=== PATIENT | female | born 1970 | race Hispanic/Latino ===

== ENCOUNTER 2018-04-11 02:28 | Emergency (ER) | payer OTHER ==
[2018-04-11] MEDS ORDERED: ASPIRIN 81MG TAB.CHEW ONE (02:49)
[2018-04-11 03:16] LABS: CREATININE 0.8 mg/dL (0.5-1.5); POTASSIUM 3.8 mmol/L (3.5-5.1)
[2018-04-11 03:17] LABS: INR 0.95 (0.85-1.15); PARTIAL THROMBOPLASTIN TIME 28.2 SEC (26.3-35.5)
[2018-04-11 03:23] LABS: BASOPHILS % (AUTO) 0.4 % (0.0-5.0); HEMATOCRIT 39.1 % (36-48); LYMPHOCYTES % (AUTO) 28.7 % (21.0-51.0); MEAN CORPUSCULAR HEMOGLOBIN 32.3 pg (27.0-33.0); MEAN CORPUSCULAR HGB CONC 35.8 g/dL (32.0-36.0); MEAN CORPUSCULAR VOLUME 90.1 fL (79-99); MONOCYTES % (AUTO) 7.3 % (3.0-13.0); NEUTROPHILS % (AUTO) 61.6 % (40.0-77.0); NUCLEATED RED BLOOD CELLS 0.1 % (0.0-0.19); PLATELET COUNT (AUTO) 193 K/uL (130-400); RED BLOOD CELL COUNT(AUTO) 4.34 MIL/uL (4.00-5.50); RED CELL DISTRIBUTION WIDTH 12.9 % (11.0-15.5); WHITE BLOOD COUNT (AUTO) 7.8 K/uL (4.8-10.8)
[2018-04-11 03:30] LABS: ALBUMIN 3.3 g/dL (3.5-5.0); BILIRUBIN,TOTAL 0.4 mg/dL (0.2-1.0); CREATINE KINASE MB 0.7 ng/mL (0.5-3.6); TOTAL PROTEIN, SERUM 6.6 g/dL (6.0-8.3)
== END 2018-04-11 06:18 | disposition home or self-care (01) ==
LOC: EDH 02:28
DX: R07.89 Other chest pain (principal); E11.9 Type 2 diabetes mellitus without complications; I10 Essential (primary) hypertension; E78.5 Hyperlipidemia, unspecified; F32.9 Major depressive disorder, single episode, unspecified; Z98.890 Other specified postprocedural states; Z72.0 Tobacco use
CPT/HCPCS: 36415; 71045; 80053; 82550; 82553; 83874; 84484; 84703; 85025; 85610; 85730; 93005; 94761

== ENCOUNTER 2020-05-16 17:37 | Inpatient (IN) | payer SELFPAY ==
[~2020-05-16] VITALS: Ht 154.9 cm; Wt 46.5 kg
[2020-05-16] MEDS ORDERED: ONDANSETRON HCL 4 MG/2 ML VIAL ONE (18:12)
[2020-05-16] MEDS ORDERED: MORPHINE SULFATE 4 MG/1ML SYG ONE (18:12)
[2020-05-16 18:24] LABS: BASOPHILS % (AUTO) 0.2 % (0.0-5.0); EOSINOPHILS % (AUTO) 0.1 % (0.0-8.0); HEMATOCRIT 43.1 % (36-48); LYMPHOCYTES % (AUTO) 21.7 % (21.0-51.0); MEAN CORPUSCULAR HEMOGLOBIN 29.7 pg (27.0-33.0); MEAN CORPUSCULAR HGB CONC 34.3 g/dL (32.0-36.0); MEAN CORPUSCULAR VOLUME 86.5 fL (79-99); MONOCYTES % (AUTO) 5.4 % (3.0-13.0); NEUTROPHILS % (AUTO) 72.3 % (40.0-77.0); PLATELET COUNT (AUTO) 236 K/uL (130-400); RED BLOOD CELL COUNT(AUTO) 4.98 MIL/uL (4.00-5.50); RED CELL DISTRIBUTION WIDTH 13.9 % (11.0-15.5); WHITE BLOOD COUNT (AUTO) 8.7 K/uL (4.8-10.8)
[2020-05-16 18:41] LABS: CREATININE 0.9 mg/dL (0.5-1.5); POTASSIUM 3.7 mmol/L (3.5-5.1)
[2020-05-16 18:45] LABS: ALBUMIN 4.3 g/dL (3.5-5.0); BILIRUBIN,TOTAL 0.8 mg/dL (0.2-1.0)
[2020-05-16 18:47] LABS: APPEARANCE,URINE CLOUDY (CLEAR); BILIRUBIN,URINE SMALL (NEGATIVE); COLOR,URINE YELLOW (YELLOW); GLUCOSE, URINE (UA) NEGATIVE (NEGATIVE); KETONES,URINE 5 mg/dL (NEGATIVE); LEUKOCYTE ESTERASE ,URINE NEGATIVE (NEGATIVE); NITRATE,URINE NEGATIVE (NEGATIVE); OCCULT BLOOD,URINE TRACE-INTACT (NEGATIVE); PROTEIN,URINE TRACE mg/dL (NEGATIVE)
[2020-05-16 18:55] LABS: AMORPHOUS SEDIMENT,UR Moderate /LPF (None Seen); BACTERIA,URINE Few /HPF (None Seen); SQUAMOUS EPITHELIAL CELL,UR Few /HPF (0-2)
[2020-05-16] MEDS: SODIUM CHLORIDE 0.9% 1000ML 1,000 ML IV SCH ×2 (19:53→23:47)
[2020-05-16] MEDS ORDERED: HYDRALAZINE HCL 20 MG/ML VIAL IV PRN (20:00)
[2020-05-16] MEDS ORDERED: ACETAMINOPHEN 325 MG TAB PO PRN (20:00)
[2020-05-16] MEDS ORDERED: LACTULOSE 20 GM/30 ML UDCUP PO PRN (20:00)
[2020-05-16] MEDS: FAMOTIDINE/PF 20 MG/2 ML VIAL IV SCH (21:00)
[2020-05-16] MEDS ORDERED: MORPHINE SULFATE 2 MG/ML 1ML SYG ONE (21:49)
--- NOTE | 2020-05-16 23:15 | NUR ---
ADMIT NOTE ADMIT TO ROOM 324 VIA STRETCHER FROM ER. PATIENT AWAKE, ALERT, OX3, NO SOB, C/.O PAIN, SEE PAIN ASSESSMENT AND TREATMENT, IVF INFUSING WELL TO LEFT AC 20, REINFORCE NPO STATUS, TEACH PATIENT PLAN OF CARE AND EXPECTED OUTCOME, PATIENT VERBALIZES UNDERSTANDING VIA TEACH BACK
[2020-05-16 23:22] VITALS: BP 180/79
[2020-05-16] MEDS: ONDANSETRON HCL 4 MG/2 ML VIAL IV PRN (23:47)
[2020-05-16] MEDS: MORPHINE SULFATE 2 MG/ML 1ML SYG IV PRN (23:48)
[2020-05-16] MEDS: INSULIN HUMULIN R 100 UNIT/ML 3ML SQ SCH (23:48)
[2020-05-17 03:33] VITALS: BP 125/63
[2020-05-17] MEDS: MORPHINE SULFATE 2 MG/ML 1ML SYG IV PRN ×4 (03:45→20:15)
[2020-05-17 04:32] LABS: BASOPHILS % (AUTO) 0.3 % (0.0-5.0); EOSINOPHILS % (AUTO) 1.2 % (0.0-8.0); HEMATOCRIT 38.8 % (36-48); MEAN CORPUSCULAR HEMOGLOBIN 29.5 pg (27.0-33.0); MEAN CORPUSCULAR HGB CONC 33.8 g/dL (32.0-36.0); MEAN CORPUSCULAR VOLUME 87.4 fL (79-99); MONOCYTES % (AUTO) 6.7 % (3.0-13.0); NEUTROPHILS % (AUTO) 57.5 % (40.0-77.0); PLATELET COUNT (AUTO) 195 K/uL (130-400); RED BLOOD CELL COUNT(AUTO) 4.44 MIL/uL (4.00-5.50); RED CELL DISTRIBUTION WIDTH 13.7 % (11.0-15.5); WHITE BLOOD COUNT (AUTO) 6.9 K/uL (4.8-10.8)
[2020-05-17 04:40] LABS: CREATININE 0.9 mg/dL (0.5-1.5); POTASSIUM 3.8 mmol/L (3.5-5.1)
[2020-05-17] MEDS: INSULIN HUMULIN R 100 UNIT/ML 3ML SQ SCH ×3 (05:32→21:43)
[2020-05-17 07:30] VITALS: BP 125/84
[2020-05-17] MEDS: FAMOTIDINE/PF 20 MG/2 ML VIAL IV SCH ×2 (08:50→20:14)
[2020-05-17] MEDS: ONDANSETRON HCL 4 MG/2 ML VIAL IV PRN ×2 (08:54→20:14)
[2020-05-17] MEDS: ENOXAPARIN SODIUM 40 MG/0.4 ML SYRINGE SQ SCH (08:55)
[2020-05-17 11:00] VITALS: BP 142/70
--- NOTE | 2020-05-17 11:00 | NUR ---
NOTFIED DR SHIN OF CONSULT AND SCAN REPORT. LET HER KNOW ALSO PER PATIENT PASSING GAS . PER MD WILL SEE PATIENT TOMORROW .
--- NOTE | 2020-05-17 12:09 | NUR ---
RD NOTIFICATION Pt admitted with Ileus, Bowel Obstruction. NGT placed for suction. Pt with constipation and nausea x3days. Pending Surgical Evaluation. Recommend continue POC Recommend Altered means nutrition if NPO >3-5 days Recommend advance diet as tolerated to GI Soft/[place] as medically feasible. RD to continue to monitor. Please notify as additional nutrition concerns arise. Thank you. Addendum: 05/17/20 at [address] RD Amended: Links added.
--- NOTE | 2020-05-17 13:02 | NUR ---
DIGNA PLAN VISITED WITH PATIENT. PATIENT DOWN FOR [facility] WILL CONTINUE TO FOLLOW AND COMPLETE IA. Addendum: 05/17/20 at 1303 by KAYLA SKAGGS RN CM Amended: Links added.
[2020-05-17 16:00] VITALS: BP 139/61
[2020-05-17] MEDS: SODIUM CHLORIDE 0.9% 1000ML 1,000 ML IV SCH (20:15)
[2020-05-17 20:30] VITALS: BP 154/74
[2020-05-18 00:02] VITALS: BP 147/78
[2020-05-18] MEDS: MORPHINE SULFATE 2 MG/ML 1ML SYG IV PRN ×4 (00:13→23:14)
[2020-05-18] MEDS: SODIUM CHLORIDE 0.9% 1000ML 1,000 ML IV SCH ×3 (00:49→21:53)
[2020-05-18 04:00] VITALS: BP 110/55
[2020-05-18 05:44] LABS: BASOPHILS % (AUTO) 0.6 % (0.0-5.0); EOSINOPHILS % (AUTO) 1.9 % (0.0-8.0); HEMATOCRIT 38.7 % (36-48); LYMPHOCYTES % (AUTO) 38.8 % (21.0-51.0); MEAN CORPUSCULAR HEMOGLOBIN 29.3 pg (27.0-33.0); MEAN CORPUSCULAR HGB CONC 33.6 g/dL (32.0-36.0); MEAN CORPUSCULAR VOLUME 87.2 fL (79-99); MONOCYTES % (AUTO) 8.1 % (3.0-13.0); NEUTROPHILS % (AUTO) 50.4 % (40.0-77.0); PLATELET COUNT (AUTO) 173 K/uL (130-400); RED BLOOD CELL COUNT(AUTO) 4.44 MIL/uL (4.00-5.50); RED CELL DISTRIBUTION WIDTH 13.2 % (11.0-15.5); WHITE BLOOD COUNT (AUTO) 4.8 K/uL (4.8-10.8)
[2020-05-18 05:49] LABS: CREATININE 0.9 mg/dL (0.5-1.5); POTASSIUM 4.1 mmol/L (3.5-5.1)
[2020-05-18] MEDS: INSULIN HUMULIN R 100 UNIT/ML 3ML SQ SCH ×4 (06:00→23:09)
[2020-05-18 08:00] VITALS: BP 149/89
[2020-05-18] MEDS: FAMOTIDINE/PF 20 MG/2 ML VIAL IV SCH (08:41)
[2020-05-18] MEDS: ENOXAPARIN SODIUM 40 MG/0.4 ML SYRINGE SQ SCH (08:41)
[2020-05-18] MEDS: ACETAMINOPHEN 325 MG TAB PO PRN (08:52)
[2020-05-18] MEDS: AMLODIPINE BESYLATE 5 MG TAB PO SCH (10:48)
[2020-05-18] MEDS: DOCUSATE SODIUM 100 MG CAP PO SCH ×3 (10:48→23:09)
[2020-05-18] MEDS: SUCRALFATE 1 GM TABLET PO SCH ×3 (10:49→23:09)
[2020-05-18 12:00] VITALS: BP 158/92
[2020-05-18] MEDS: AMOXICILLIN 500 MG CAPSULE PO SCH (15:54)
[2020-05-18] MEDS: CLARITHROMYCIN 500 MG TABLET PO SCH (15:55)
[2020-05-18 16:00] VITALS: BP 139/70
--- NOTE | 2020-05-18 16:54 | NUR ---
PT STATED SHE HAD A LARGE DIARRHIA LIKE BOWEL MOVEMENT; I DID GIVE HER LACTULOSE AND COLACE EARLIER TODAY. SHE DENIED NAUSEA AFTER CLEAR AND FULL LIQUID DIET MEALS, BUT SHE IS C/O SOME NAUSE NOW WITH THE GI BLAND DIET.
[2020-05-18] MEDS: ONDANSETRON HCL 4 MG/2 ML VIAL IV PRN (18:13)
[2020-05-18 20:00] VITALS: BP 165/70
[2020-05-18] MEDS ORDERED: ACETAMINOPHEN 325 MG TAB PO ONE (21:00)
[2020-05-18] MEDS: PANTOPRAZOLE SODIUM 40 MG TABLET.DR PO SCH (23:09)
[2020-05-19] VITALS: BP 150/70
[2020-05-19] MEDS: ONDANSETRON HCL 4 MG/2 ML VIAL IV PRN ×2 (01:41→19:05)
[2020-05-19] MEDS: CLARITHROMYCIN 500 MG TABLET PO SCH ×2 (01:41→14:02)
[2020-05-19] MEDS: AMOXICILLIN 500 MG CAPSULE PO SCH ×2 (01:42→14:02)
[2020-05-19 04:00] VITALS: BP 167/79
[2020-05-19 05:58] LABS: BASOPHILS % (AUTO) 0.4 % (0.0-5.0); EOSINOPHILS % (AUTO) 1.3 % (0.0-8.0); HEMATOCRIT 38.2 % (36-48); LYMPHOCYTES % (AUTO) 34.5 % (21.0-51.0); MEAN CORPUSCULAR HEMOGLOBIN 29.3 pg (27.0-33.0); MEAN CORPUSCULAR HGB CONC 34.6 g/dL (32.0-36.0); MEAN CORPUSCULAR VOLUME 84.7 fL (79-99); MONOCYTES % (AUTO) 6.9 % (3.0-13.0); NEUTROPHILS % (AUTO) 56.7 % (40.0-77.0); PLATELET COUNT (AUTO) 189 K/uL (130-400); RED BLOOD CELL COUNT(AUTO) 4.51 MIL/uL (4.00-5.50); RED CELL DISTRIBUTION WIDTH 12.8 % (11.0-15.5); WHITE BLOOD COUNT (AUTO) 5.2 K/uL (4.8-10.8)
[2020-05-19] MEDS: INSULIN HUMULIN R 100 UNIT/ML 3ML SQ SCH ×3 (06:00→17:11)
[2020-05-19] MEDS: SODIUM CHLORIDE 0.9% 1000ML 1,000 ML IV SCH (06:30)
[2020-05-19] MEDS: SUCRALFATE 1 GM TABLET PO SCH ×4 (06:30→22:13)
[2020-05-19 06:35] LABS: CREATININE 0.8 mg/dL (0.5-1.5); POTASSIUM 3.5 mmol/L (3.5-5.1)
[2020-05-19 08:00] VITALS: BP 146/63
[2020-05-19] MEDS: ENOXAPARIN SODIUM 40 MG/0.4 ML SYRINGE SQ SCH (09:00)
[2020-05-19] MEDS: PANTOPRAZOLE SODIUM 40 MG TABLET.DR PO SCH ×2 (09:01→22:13)
[2020-05-19] MEDS: DOCUSATE SODIUM 100 MG CAP PO SCH ×4 (09:01→22:13)
[2020-05-19] MEDS: AMLODIPINE BESYLATE 5 MG TAB PO SCH (09:01)
[2020-05-19 12:00] VITALS: BP 111/80
[2020-05-19 16:00] VITALS: BP 131/56
[2020-05-19] MEDS: MORPHINE SULFATE 2 MG/ML 1ML SYG IV PRN (19:06)
[2020-05-19 20:20] VITALS: BP 129/70
[2020-05-20] VITALS (8 sets, daily range): BP systolic 115–153; BP diastolic 56–76
[2020-05-20] MEDS: MORPHINE SULFATE 2 MG/ML 1ML SYG IV PRN ×2 (00:07→22:31)
[2020-05-20] MEDS: CLARITHROMYCIN 500 MG TABLET PO SCH ×2 (00:42→13:15)
[2020-05-20] MEDS: AMOXICILLIN 500 MG CAPSULE PO SCH ×2 (00:42→13:15)
[2020-05-20] MEDS: SODIUM CHLORIDE 0.9% 1000ML 1,000 ML IV SCH ×2 (03:53→17:42)
[2020-05-20] MEDS: INSULIN HUMULIN R 100 UNIT/ML 3ML SQ SCH ×4 (06:00→18:00)
[2020-05-20] MEDS: SUCRALFATE 1 GM TABLET PO SCH ×4 (06:25→22:31)
[2020-05-20] MEDS: PANTOPRAZOLE SODIUM 40 MG TABLET.DR PO SCH ×2 (08:25→22:31)
[2020-05-20] MEDS: AMLODIPINE BESYLATE 5 MG TAB PO SCH (08:25)
[2020-05-20] MEDS: DOCUSATE SODIUM 100 MG CAP PO SCH ×3 (08:25→22:31)
[2020-05-20] MEDS: ENOXAPARIN SODIUM 40 MG/0.4 ML SYRINGE SQ SCH (08:26)
[2020-05-20] MEDS: ONDANSETRON HCL 4 MG/2 ML VIAL IV PRN ×2 (09:04→22:31)
--- NOTE | 2020-05-20 10:10 | NUR ---
DC PLAN VISITED WITH PATIENT. PATIENT LIVES WITH SPOUSE. INDEPENDENT ABLE TO PERFORM ADL'S. PATIENT HAS NO HOME SERVICES OR DME'S. FEELS SAFE TO RETURN HOME. GETS MEDS FROM [facility]. Addendum: 05/20/20 at 1012 by KAYLA SKAGGS RN CM Amended: Links added.
[2020-05-20] MEDS: ATORVASTATIN CALCIUM 20 MG TABLET PO SCH (13:17)
[2020-05-20] MEDS: ASPIRIN 81 MG EC TAB PO SCH (13:17)
--- NOTE | 2020-05-20 14:15 | NUR ---
Received report from Raj Cabral RN for continuity of care. Patient to move from RM. 324 to Rm. 304. Currently NPO for CT Angiogram, scheduled medications pending.
--- NOTE | 2020-05-20 14:20 | NUR ---
Patient AAOx3, denies nausea or abdominal pain at this time. Treatment plan reviewed with patient, reminded that is NPO for CT Angiogram and can eat clear liquid diet after procedure. Patient verbalized understanding.
[2020-05-20] MEDS ORDERED: IOHEXOL-350 75 ML VIAL IV ONE (14:41)
[2020-05-20] MEDS: ACETAMINOPHEN 325 MG TAB PO PRN (17:46)
--- NOTE | 2020-05-20 20:34 | NUR ---
pending RESULTS ct aNGIO PENDING RESULTS CT ANGIO
[2020-05-21] MEDS: AMOXICILLIN 500 MG CAPSULE PO SCH ×2 (01:41→12:10)
[2020-05-21] MEDS: CLARITHROMYCIN 500 MG TABLET PO SCH ×2 (01:41→12:10)
[2020-05-21] MEDS: SODIUM CHLORIDE 0.9% 1000ML 1,000 ML IV SCH ×3 (01:43→19:53)
[2020-05-21 03:48] VITALS: BP 124/63
[2020-05-21] MEDS: INSULIN HUMULIN R 100 UNIT/ML 3ML SQ SCH ×5 (06:00→21:00)
[2020-05-21] MEDS: SUCRALFATE 1 GM TABLET PO SCH ×3 (06:49→23:11)
[2020-05-21] MEDS: ONDANSETRON HCL 4 MG/2 ML VIAL IV PRN (06:49)
[2020-05-21 08:00] VITALS: BP 120/59
--- NOTE | 2020-05-21 08:00 | NUR ---
Paged Dr. Adorno to notify of CTA results. Alanna from [employer] called back to say that Dr. Adorno was in procedure and would derick back when free.
[2020-05-21] MEDS: AMLODIPINE BESYLATE 5 MG TAB PO SCH (09:28)
[2020-05-21] MEDS: DOCUSATE SODIUM 100 MG CAP PO SCH ×3 (09:28→23:11)
[2020-05-21] MEDS: ASPIRIN 81 MG EC TAB PO SCH (09:28)
[2020-05-21] MEDS: ENOXAPARIN SODIUM 40 MG/0.4 ML SYRINGE SQ SCH (09:28)
[2020-05-21] MEDS: PANTOPRAZOLE SODIUM 40 MG TABLET.DR PO SCH ×2 (09:28→23:11)
[2020-05-21] MEDS: ATORVASTATIN CALCIUM 20 MG TABLET PO SCH (09:28)
[2020-05-21 11:46] VITALS: BP 135/64
--- NOTE | 2020-05-21 15:51 | NUR ---
CAMILA FOLLOW UP Pt continues with Clear Liquid Diet order. Upon visit, Pt reports nausea with consumption of clear liquids, no emesis. Pt also asking if she will still have surgery. Attempt to call RN at [phone] with no answer. Recommend continue Clear Liquid Diet Order Recommend 60mL ProMod BID RD to continue to monitor. Please notify as additional nutrition concerns arise. Thank you. Addendum: 05/21/20 at [address] RD Amended: Links added.
[2020-05-21 16:00] VITALS: BP 135/68
--- NOTE | 2020-05-21 18:34 | NUR ---
CHART REVIEWED, EXPECT DIET TO BE ADVANCED AND DC ANTICIPATED Addendum: 05/21/20 at 1834 by STEPHANE LUCERO RN CM Amended: Links added.
[2020-05-21 21:43] VITALS: BP 131/74
[2020-05-21] MEDS: MORPHINE SULFATE 2 MG/ML 1ML SYG IV PRN (23:20)
[2020-05-22 00:15] VITALS: BP 121/68
[2020-05-22] MEDS: AMOXICILLIN 500 MG CAPSULE PO SCH (00:21)
[2020-05-22] MEDS: CLARITHROMYCIN 500 MG TABLET PO SCH (00:21)
[2020-05-22 04:30] VITALS: BP 139/77
[2020-05-22] MEDS: SODIUM CHLORIDE 0.9% 1000ML 1,000 ML IV SCH (06:01)
[2020-05-22] MEDS: INSULIN HUMULIN R 100 UNIT/ML 3ML SQ SCH (06:04)
[2020-05-22] MEDS: SUCRALFATE 1 GM TABLET PO SCH (06:04)
[2020-05-22 08:00] VITALS: BP 135/67
[2020-05-22] MEDS: AMLODIPINE BESYLATE 5 MG TAB PO SCH (09:12)
[2020-05-22] MEDS: DOCUSATE SODIUM 100 MG CAP PO SCH (09:12)
[2020-05-22] MEDS: ASPIRIN 81 MG EC TAB PO SCH (09:12)
[2020-05-22] MEDS: PANTOPRAZOLE SODIUM 40 MG TABLET.DR PO SCH (09:12)
[2020-05-22] MEDS: ATORVASTATIN CALCIUM 20 MG TABLET PO SCH (09:13)
[2020-05-22] MEDS: ENOXAPARIN SODIUM 40 MG/0.4 ML SYRINGE SQ SCH (09:14)
[2020-05-22] MEDS ORDERED: OMEP40CA13 PO (10:19)
[2020-05-22] MEDS ORDERED: DOCU-275 PO (10:19)
[2020-05-22] MEDS ORDERED: AMOX500C2 PO (10:19)
[2020-05-22] MEDS ORDERED: CLAR-44 PO (10:19)
[2020-05-22] MEDS ORDERED: AMLO5TAB4 PO (10:19)
[2020-05-22] MEDS ORDERED: ATOR20TA65 PO (10:19)
[2020-05-22 12:00] VITALS: BP 121/66
== END 2020-05-22 14:15 | disposition home or self-care (01) | DRG 392 ==
LOC: EDH 17:37 → EDHIP 17:38 → 3DH 21:09 → 3AH 05-20 14:09
PROVIDERS: ADMIT Internal Medicine; ATTEND Internal Medicine
PROC: 0D9670Z Drainage of Stomach with Drainage Device, Via Natural or Artificial Opening (ICD-10-PCS; principal; 2020-05-16)
DX: K52.9 Noninfective gastroenteritis and colitis, unspecified (principal); B96.81 Helicobacter pylori [H. pylori] as the cause of diseases classified elsewhere; K27.9 Peptic ulcer, site unspecified, unspecified as acute or chronic, without hemorrhage or perforation; I10 Essential (primary) hypertension; F17.210 Nicotine dependence, cigarettes, uncomplicated; E78.5 Hyperlipidemia, unspecified; E11.51 Type 2 diabetes mellitus with diabetic peripheral angiopathy without gangrene; F43.10 Post-traumatic stress disorder, unspecified; K76.0 Fatty (change of) liver, not elsewhere classified; Z87.730 Personal history of (corrected) cleft lip and palate; Z82.49 Family history of ischemic heart disease and other diseases of the circulatory system; Z83.3 Family history of diabetes mellitus
CPT/HCPCS: 36415; 74021; 74175; 74176; 76705; 80048; 80053; 81001; 81025; 82550; 82948; 83690; 84484; 85025; 86677; 93005; 93975; G0378; J1650; J2270; J2405; J3490; J7030; Q9967